=== PATIENT | male | born 1975 | race Caucasian/White ===

== ENCOUNTER 2017-06-10 03:17 | Emergency (ER) | payer MEDICAID ==
[~2017-06-10] VITALS: Ht 175.3 cm; Wt 105.0 kg
[2017-06-10 03:19] VITALS: BP 144/87
[2017-06-10] MEDS ORDERED: HYDROcodone/APAP 5/325 TABLET ONE (03:42)
[2017-06-10] MEDS ORDERED: CABE0.5T PO (03:46)
[2017-06-10] MEDS ORDERED: HYDROcodone/APAP 5/325 TABLET PO ONE (04:00)
== END 2017-06-10 04:19 | disposition home or self-care (01) ==
LOC: ED 04:14
DX: K02.9 Dental caries, unspecified (principal)
CPT/HCPCS: 99283